=== PATIENT | male | born 1950 | race Caucasian/White ===

== ENCOUNTER 2017-04-19 00:44 | Day surgery (SDC) | payer MEDICARE, OTHER ==
[~2017-04-19] VITALS: Ht 185.4 cm; Wt 81.8 kg
[2017-04-19] VITALS (11 sets, daily range): BP systolic 89–138; BP diastolic 44–80; PULSE 69–79; RESP 10–16; O2SAT 93–97
[~2017-04-19 00:44] MED LIST: TAMS0.4C98 PO
[2017-04-19] MEDS ORDERED: Propofol 10,000 mCg/mL 20 mL Inj ONE (00:45)
[2017-04-19] MEDS ORDERED: fentaNYL-PF 50 mCg/mL 2 mL Inj ONE (00:45)
[2017-04-19] MEDS ORDERED: Lactated Ringer's 1,000 ML IV SCH (05:00)
[2017-04-19] MEDS ORDERED: Benzoc-Butamben-Tetraca Spray 20 Gm Spray TOPICAL PRN (12:00)
[2017-04-19] MEDS ORDERED: diphenhydrAMINE 25 mg Capsule PO SCH (12:00)
[2017-04-19] MEDS ORDERED: Heparin 1,000 Units/500 mL NS Premix IV ONE ×2 (12:17→13:34)
[2017-04-19] MEDS ORDERED: Heparin 1,000 Unit/mL 10 mL Inj ONE (12:18)
[2017-04-19] MEDS ORDERED: Heparin 10,000 Unit/1,000 mL NS Premix IV ONE ×2 (12:18→13:34)
[2017-04-19] MEDS ORDERED: Nitroglycerin 50,000 mcg/250 mL D5W Premix IV ONE (12:19)
[2017-04-19] MEDS ORDERED: Verapamil 2.5 mg/mL 2 mL Inj ONE (12:20)
[2017-04-19 12:28] LABS: BASOPHILS % (AUTO) 0.7 % (0-3); EOSINOPHILS % (AUTO) 5.7 % (0-5); MONOCYTES % (AUTO) 5.9 % (4-12); Mean Corpuscular Hemoglobin 30.8 pg (27.0-35.0); Mean Corpuscular Volume 88.2 fL (81-100); NEUTROPHILS % (AUTO) 57.7 % (40-74); Platelet Count 163 bil/L (150-400)
--- NOTE | 2017-04-19 12:53 | NUR ---
[facility] ADMIT 67 YEAR OLD MALE ADMITTED TO [facility] FOR LLOYD AND HEART CATH TODAY AT 1200. IVS STARTED, LABS SENT, AND QUESTIONS ANSWERED. CONSENTS ARE SIGNED.
--- NOTE | 2017-04-19 14:00 | PCM.HPANE ---
Patient Data Surgeon Admitting Provider: Attending Provider:Kandace Thompson MD Primary Care Physician:Quinn Other Provider:Donna Matos Anesthesia Reason for Visit Nonrheumatic Mitral (Valve) Prolapse Ht/WT & BMI Body Mass Index Allergies Coded Allergies: No Known Allergies (Verified , 04/19/17) Past Anesthesia History Anesthesia History: Denies:: Abnormal Airway, Anesthesia Reactions, Difficult Intubation, Fam Anesthesia Reaction, Fam Malignant Hypertherm, Malignant Hyperthermia Medications Reported Medications Tamsulosin (Flomax)0.4 Mg Capsule0.8 Mg PO DAILY Ref 0 04/18/17 History History of ENT Problems?: No HEENT History: Denies:: Abnormal Airway Cataracts Difficult Intubation Dysphagia Glaucoma Hearing Problem Sinus Problem TMJ Denture Type: None Teeth Condition: Within Normal Limits Hx of Heart Problems?: Yes Cardiovascular History: Positive for:: Valvular Heart Disease Denies:: AICD Abdominal Aortic Aneurism Atrial Fibrillation Cardiac Surgery Chest Pain Congestive Heart Failure Coronary Artery Disease Edema Heart Murmur Hypertension Irregular Heartbeat Pacemaker Peripheral Vascular Rheumatic Fever Thrombophlebitis Hx of Respiratory Problem?: No Respiratory History: Denies:: Asthma COPD Chest Surgery Cough Dyspnea Emphysema Hemoptysis Oxygen Administration Pneumonia Pulmonary Embolism Tuberculosis Use of C-PAP Machine Use of Inhalers / NEBS Hx Neurologic Problems?: No Hx of GI Problems?: No Hx of Problems?: No Hx Musculoskeletal Problems?: No Hx of Psycho/Social Problems?: No Hx Surgeries?: Yes Stop/Bang Risk Assessment Category Category 1A: Patient has history of documented sleep apnea, and HAS NOT received any narcotic, sedative or anesthesia administration during this stay. Category 1B: Patient has history of documented sleep apnea, and HAS received any narcotic , sedative or anesthesia administration during this stay Category 2: Patient has SUSPECTED Obstructive Sleep Apnea, and HAS received any narcotic , sedative or anesthesia administration during this stay. Category 3: Patient has SUSPECTED Obstructive Sleep Apnea and HAS NOT received narcotic, sedative or anesthesia administration during this stay. Category 4: Outpatient in Procedural Areas with known sleep apnea or who screen positive for High Risk via the STOP/BANG questionnaire. Exam Exam General Appearance: Alert, Oriented X3, Cooperative, No Acute Distress HEENT/AIRWAY: MP 2 Lungs: Clear to Auscultation Heart: Exam Unremarkable Plan Impression Patient chart reviewed, patient interviewed and anesthestic plan with risks, benefits, and alternatives discussed, and informed consent obtained. ASA Physical Status: ASA3 Severe Disease Anesthetic Plan: MAC Bene/Risks/Altern/Consents: Yes HP Complete Prior to Induction: Yes Torey Duarte MD Apr 19, 2017 07:19
--- NOTE | 2017-04-19 14:00 | PCM.ANEP1 ---
Post Anesthesia PACU Phase 1 Assessment Vital Signs Vital Signs Date Time Temp Pulse Resp B/P Pulse Ox O2 Delivery O2 Flow Rate FiO2 04/19/17 13:40 71 14 89/44 95 Nasal Cannula 4.00 04/19/17 12:50 36.7 74 15 133/76 96 Room Air Anesthetic Administered: MAC Level of Alertness: Sleepy, easy to arouse HENAO's with Equal Strength: Yes Pain: No Nausea or Vomiting: No CV Function & Hydration Stable: Yes Airway Device: Oxygen Delivery: Room Air Lungs: Clear to Auscultation Dermatome Level: Full Sensation PACU Phase 2 Assessment Complications: No Patient Instructions Provided: N/A Torey Duarte MD Apr 19, 2017 14:00
[2017-04-19] MEDS ORDERED: Atropine 1 mg/10 mL (Code) Syringe ONE (14:21)
--- NOTE | 2017-04-19 15:37 | NUR ---
JOANNE LLOYD SEE ANESTHESIA FLOW SHEET FOR DETAIL OF LLOYD. PT TO [employer] [facility] AT 1350 DIRECTLY AFTER LLOYD.
--- NOTE | 2017-04-19 15:46 | DRSVH ---
Located Within [facility] [address] [place] [address] Echocardiogram Report Name: CRISTINA CENTENO KStudy Date : 04/19/2017 Height: 69 in Hospital Exam Location: [facility] Weight: 190 lb Gender: Male BSA: 2.0 m2 : 1950 Age: 67 yrs Reason For Study: mitral valve prolapse Ordering Physician: Performed By: Asa Sloan Interpretation Summary The left ventricle is mildly dilated. The ejection fraction is estimated to be 60-65%. The right ventricle is normal in size and function. The left atrium is severely dilated. No left atrial mass or thrombus visualized. No thrombus is detected in the left atrial appendage. The interatrial septum is intact with no evidence for an atrial septal defect. Injection of contrast documented no interatrial shunt. The mitral valve leaflets appear myxomatous. There is severe prolapse of the posterior mitral leaflet (Predominantly P2 scallop) resulting in the mal-coaptation of the leaflets (0.5 cm gap). In gastric views, filamentous mobile structure seen, likely a torn chordae attached to the posteromedial papillary muscle. Very eccentric color jet of MR. Difficult to do accurate PISA or vena contracta assessment. MR jet seen in left atrial appendage as well. During LLOYD no significant pulmonary vein systolic reversal seen, likely due to very eccentric jet. There is moderate to severe mitral regurgitation. Procedure: Informed consent for Transesophageal Echocardiogram, and use of a contrast agent as needed, was obtained prior to the procedure. The patient was brought to the [facility] in a fasting state. An intravenous line was placed. A topical anesthetic agent was used for oropharangeal anesthesia. A bite block was inserted. Sedation was managed by anesthesiologist; see anesthesiology notes for details. The transesophageal probe was passed without difficulty. A 2D transesophageal echocardiogram with spectral and color flow Doppler was performed. The usual views were obtained; basal, mid-esophageal, transgastric and aortic views. The patient's vital signs, including blood pressure, heart rate, pulse oximetry and cardiac rhythm were monitored throughout the procedure and remained stable. The patient tolerated the procedure well without evidence of orophangeal or esophageal trauma. Contrast injection with agitated saline was performed. The patient was in normal sinus rhythm during the exam. There were no complications. Left Ventricle: The left ventricle is mildly dilated. The ejection fraction is estimated to be 60-65%. There are no focal wall motion abnormalities. Right Ventricle: The right ventricle is normal in size and function. Atria: The left atrium is severely dilated. No left atrial mass or thrombus visualized. No thrombus is detected in the left atrial appendage. Right atrial size is normal. The interatrial septum is intact with no evidence for an atrial septal defect. Injection of contrast documented no interatrial shunt. Mitral Valve: The mitral valve leaflets are mildly calcified. There is severe prolapse of the posterior mitral leaflet (Predominantly P2 scallop) resulting in the mal-coaptation of the leaflets (0.5 cm). In gastric views, filamentous mobile structure seen, likely a torn chordae attached to the posteromedial papillary muscle. Very eccentric color jet of MR. Difficult to accurate PISA or vena contracta assessment. The mitral valve leaflets appear myxomatous. There is moderate to severe mitral regurgitation. There is an eccentric jet of mitral regurgitation that is directed toward the atrial septum.. Aortic Valve: The aortic valve is normal in structure and function. There is trace aortic regurgitation. Tricuspid Valve: The tricuspid valve is normal. There is mild tricuspid regurgitation. Right ventricular systolic pressure is estimated to be 22 mmHg plus the clinically estimated CVP which cannot be estimated on this exam. Pulmonic Valve: The pulmonic valve is not well seen, but is grossly normal. There is trace pulmonic regurgitation. MMode/2D Measurements & Calculations IVSd: 1.1 cm LVIDd FS LV brizuela. diameter/BSA LVPWd: 1.2 cm : 6.1 cm : 34.% (cm/m^2): 3.0 LVIDs : 4.0 cm LV sys. diameter/BSA (cm/m^2): 2.0 Doppler Measurements & Calculations MV E max rudi MV dec time MR PISA radius TR max rudi : 127.7 cm/sec : 0.27 sec : 228.1 cm/sec MV A max rudi TR max P.8 mmHg : 93.6 cm/sec MV E/A: 1.4 Reading Physician:MERLIN
--- NOTE | 2017-04-19 16:39 | CS94 ---
[address] [address] DIAGNOSTIC CARDIAC CATHETERIZATION PATIENT: CRISTINA CENTENO : 1950 MR#: [id number] ADMIT: 04/19/2017 JOB ID: [id number] SERVICE DATE: 04/19/2017 INDICATIONS: This 67-year-old white male has a history of severe mitral valve prolapse. At least [id number] mitral regurgitation, with LV ejection fraction 60%-65%, who has developed worsening of LV dilatation, severe left atrium enlargement, and systolic dimension on 2D echo 4.2, was scheduled for right and left heart catheterization to rule out coronary artery disease prior to mitral valve surgery as well as assess intracardiac pressure. Benefits and risks, which include, but not limited to, risk of bleeding, groin complication, myocardial infarction, stroke, , renal insufficiency, cardiac tamponade, venous complication, peripheral complications, etc., and details discussed with the patient. He verbalizes understanding. All the questions were answered. An informed consent was obtained. FIRE PILOT: Kandace Thompson M.D. PROCEDURES: 1. Left heart catheterization. 2. Coronary arteriography. 3. Left ventriculography. 4. Right heart catheterization with intracardiac pressure. ASSESSMENT: Oxygen saturation assessment, cardiac output assessment. DESCRIPTION OF PROCEDURE: Right groin was cleaned, prepped and draped in the usual sterile fashion. Skin and subcutaneous tissue was anesthetized with 1% lidocaine. Right femoral artery was accessed. A 6-Faroese sheath was introduced into the right femoral artery using modified Seldinger technique. Right femoral vein was accessed. An 8-Faroese sheath was introduced into the right femoral vein using modified Seldinger technique. The left coronary artery and the right coronary artery were engaged with 6-Faroese JL-4 and JR-4 catheters respectively. The left ventriculogram was done with a 6-Faroese pigtail catheter. All the catheters were advanced over the guidewire and flushed with heparinized saline. All the exchanges were made over the guidewire. Right heart catheterization was performed by using a standard balloon tipped Weehawken-Edgar catheter under constant fluoroscopic guidance. Total 87 cc [id number]-[id number] dye was used. The patient tolerated the procedure. There were no immediate complications. Hemostasis was achieved by manual compression. HEMODYNAMICS: Aortic pressure was 110/62. LV systolic pressure 110 mmHg. There was no significant pullback gradient between the aorta and left ventricle. LV end-diastolic pressure was about 10-12 mmHg. Mean wedge pressure was about 11 mmHg. Pulmonary artery systolic pressure was 28 and diastolic was about 11 mmHg. RV systolic pressure was about 28 mmHg. Mean right atrial pressure was about 3 mmHg. Arterial and wedge saturation was about 98%. RA and RV saturation was about 69%. PA saturation about 70%. With thermodilution technique, cardiac output was 5.89 L/minute with cardiac index 2.92 and with SULMA cardiac output was 4.28 L and cardiac index 2.12. There was significant prominent CV wave during wedge tracing. CORONARY ARTERY ANATOMY: 1. Left main artery. The left main artery was a short artery but was free of any significant disease. 2. LAD: LAD was a tortuous artery. LAD and its branches were free of any significant atherosclerotic coronary artery disease. 3. Circumflex artery: The circumflex artery is a nondominant artery. It gives rise to good size mid obtuse marginal branch. Circumflex and its branches were free of any significant disease. 4. Right coronary artery: The right coronary artery was a large dominant artery and it was a tortuous artery and was free of any significant disease. LEFT VENTRICULOGRAPHY: Left ventriculography revealed LV ejection fraction about 60%-65%. Left ventricle appears to be dilated. There was significant filling of left atrium. Left atrium appears to be significantly enlarged. Mitral valve prolapse seen. There appears to be significant mitral regurgitation. CONCLUSION: 1. No significant coronary artery disease. 2. Dilated left ventricle with LV ejection fraction 60%-65% with significant filling of left atrium during left ventriculography with mitral valve prolapse suggestive of significant mitral regurgitation. 3. With thermodilutional technique, cardiac output 5.89 and with SULMA 4.28 L/minute. No significant pulmonary arterial hypertension. PA systolic pressure 27 mmHg. Mean pulmonary capillary wedge pressure about 11 mmHg. Mean right atrial pressure about 3 mmHg. No significant intracardiac shunt. There is a prominent CV wave during wedge pressure tracings suggestive of significant MR. MTDD
--- NOTE | 2017-04-19 19:40 | NUR ---
JOANNE DISCHARGE PT RETURNED FROM [facility] [employer] [facility] AT 1500. HE COMPLETED BEDREST AND AMBULATED IN IBARRA AND USED THE BATHROOM. RIGHT GROIN REMAINED SOFT, NON TENDER, DRSG CHANGED. DISCHARGE INSTRUCTIONS INCLUDING POST SEDATION AND HEART CATH, F/U, AND MEDICATIONS WERE EXPLAINED AND PT AND VERBALIZED UNDERSTANDING. PT WAS DISCHARGED AT 1935 WITH IN STABLE CONDITION.
== END 2017-04-19 23:59 | disposition home or self-care (01) ==
LOC: SOUO 00:44
PROVIDERS: ATTEND Internal Medicine Cardiovascular Disease
DX: I34.0 Nonrheumatic mitral (valve) insufficiency (principal); I34.1 Nonrheumatic mitral (valve) prolapse; I51.7 Cardiomegaly; I10 Essential (primary) hypertension; Z87.891 Personal history of nicotine dependence
CPT/HCPCS: 36415; 80048; 85025; 85610; 93460; C1769; C8925; J1644; J3010; J7030; Q9967